=== PATIENT | female | born 1995 | race Caucasian/White ===

== ENCOUNTER 2018-05-09 21:10 | Emergency (ER) | payer OTHER ==
[2018-05-09] MEDS: ONDANSETRON 4 MG INJ IV (22:42)
[2018-05-09] MEDS: HYDROmorphONE 2 MG/ML SYG IV (22:43)
[2018-05-09 23:01] LABS: ANION GAP 11 (5-13); BLOOD UREA NITROGEN 13 mg/dl (7-20); CALCIUM 9.4 mg/dl (8.4-10.2); CARBON DIOXIDE 25 mmol/L (21-31); CHLORIDE 105 mmol/L (97-110); CREATININE 0.73 mg/dl (0.44-1.00); Estimated GFR > 60 mL/min (>60); GLUCOSE 89 mg/dl (70-220); SODIUM 141 mmol/L (135-144)
[2018-05-10] MEDS: HYDROmorphONE 2 MG/ML SYG IV (00:25)
[2018-05-10] MEDS: DIPHENHYDRAMINE 50 MG INJ IV (00:25)
[2018-05-10] MEDS: SOD CHLORIDE 0.9% 1,000 ML IV (01:07)
== END 2018-05-10 01:20 | disposition home or self-care (01) ==
LOC: E/R 05-10 01:20
DX: S70.02XA Contusion of left hip, initial encounter (principal); S39.012A Strain of muscle, fascia and tendon of lower back, initial encounter; G56.40 Causalgia of unspecified upper limb; J45.909 Unspecified asthma, uncomplicated; W06.XXXA Fall from bed, initial encounter; Y92.009 Unspecified place in unspecified non-institutional (private) residence as the place of occurrence of the external cause
CPT/HCPCS: 72100; 72170; 73510; 80048; 84703; 96374; 96375; 96376; 99284-25

== ENCOUNTER 2018-05-10 22:40 | Emergency (ER) | payer OTHER ==
[2018-05-10] MEDS: ONDANSETRON (ODT) 4 MG TAB ODT (23:04)
[2018-05-10] MEDS: DIPHENHYDRAMINE 50 MG CAP PO (23:04)
[2018-05-10] MEDS: HYDROmorphONE 2 MG/ML SYG IM (23:09)
== END 2018-05-11 01:00 | disposition home or self-care (01) ==
LOC: E/R 05-11 01:00
DX: R55 Syncope and collapse (principal); G89.29 Other chronic pain; J45.909 Unspecified asthma, uncomplicated
CPT/HCPCS: 70450; 72125; 81025; 93005; 96372; 99285-25